=== PATIENT | male | born 1930 | race Caucasian/White ===

== ENCOUNTER 2016-04-26 20:26 | Inpatient (IN) | payer OTHER ==
[~2016-04-26] VITALS: Ht 182.9 cm; Wt 77.1 kg
[2016-04-26 20:48] LABS: BASOPHILS % (AUTO) 0.3 % (0.0-2.0); DIFF TOTAL % 100 %; EOSINOPHILS # (AUTO) 0.5 /CMM (0.0-0.7); EOSINOPHILS % (AUTO) 7.2 % (0.0-6.0); HEMATOCRIT 42 % (39-51); HEMOGLOBIN 14.2 g/dL (13.5-17.5); LYMPHOCYTES # (AUTO) 1.2 /CMM (0.8-4.8); LYMPHOCYTES % (AUTO) 17.8 % (20.0-44.0); MEAN CORPUSCULAR HEMOGLOBIN 31 PG (26.0-33.0); MEAN CORPUSCULAR HGB CONC 34 g/dl (31.0-36.0); MEAN CORPUSCULAR VOLUME 90 fL (80-96); MONOCYTES # (AUTO) 0.7 /CMM (0.1-1.30); MONOCYTES % (AUTO) 9.9 % (2.0-12.0); NEUTROPHILS # (AUTO) 4.5 /CMM (1.8-8.9); NEUTROPHILS % (AUTO) 64.8 % (43.0-81.0); PLATELET COUNT (AUTO) 271 /CMM (150-450); RED BLOOD CELL COUNT(AUTO) 4.67 MIL/uL (4.5-6.0); WHITE BLOOD COUNT (AUTO) 6.9 K/uL (4.3-11.0)
[2016-04-26 20:56] LABS: ANION GAP 9 (5-14); CALCIUM, SERUM 9.1 mg/dL (8.5-10.1); CARBON DIOXIDE 30 mmol/L (21-32); CHLORIDE 108 mmol/L (98-107); CREATININE 0.8 mg/dL (0.6-1.3); GLUCOSE 130 mg/dL (74-106); POTASSIUM 3.4 mmol/L (3.5-5.1); SODIUM SERUM 144 mmol/L (136-145); UREA NITROGEN, BLOOD 12 mg/dL (7-18)
[2016-04-26] MEDS ORDERED: MIRT15TA7 PO (21:00)
[2016-04-26] MEDS ORDERED: ZIPR20CA2 IV (21:00)
[2016-04-26] MEDS ORDERED: POTA20TA83 IV (21:00)
[2016-04-26] MEDS ORDERED: ACET-73 PO (21:00)
[2016-04-26] MEDS ORDERED: MIDO5TAB PO (21:00)
[2016-04-26] MEDS ORDERED: LATA2.5D7 EACHEYE (21:00)
[2016-04-26] MEDS ORDERED: ONDA4TAB5 IVP (21:00)
[2016-04-26] MEDS ORDERED: FINA5TAB11 PO (21:00)
[2016-04-26] MEDS ORDERED: MEMA10TA PO (21:00)
[2016-04-26] MEDS ORDERED: QUET25TA PO (21:00)
[2016-04-26] MEDS ORDERED: QUET100T PO (21:00)
[2016-04-26] MEDS ORDERED: LORA1TAB82 IVP (21:00)
[2016-04-26 21:01] LABS: ALANINE AMINOTRANSFERASE 29 U/L (12-78); ALBUMIN 3.2 g/dL (3.4-5.0); ASPARTATE AMINOTRANSFERASE 29 U/L (15-37); BILIRUBIN,DIRECT 0.1 mg/dL (0.0-0.2); BILIRUBIN,TOTAL 0.4 mg/dL (0.2-1.0); INDIRECT BILIRUBIN 0.3 mg/dL (0.0-1.1); TOTAL PROTEIN, SERUM 6.8 g/dL (6.4-8.2)
[2016-04-26 21:02] LABS: ACETAMINOPHEN < 2 ug/ml (10-30); SALICYLATE 1.1 mg/dL (2.8-20.0)
[2016-04-26] MEDS ORDERED: WATER FOR INJECTION,STERILE 10 ML ONE (21:43)
[2016-04-26] MEDS ORDERED: OLANZAPINE 10 MG VIAL IM ONE ×2 (21:43→22:00)
[2016-04-26] MEDS ORDERED: LORAZEPAM 0.5 MG TABLET ONE (23:09)
[2016-04-26] MEDS ORDERED: TEMAZEPAM 7.5 MG CAPSULE ONE (23:09)
[2016-04-26] MEDS: TEMAZEPAM 7.5 MG CAPSULE PO PRN (23:14)
[2016-04-26] MEDS: LORAZEPAM 0.5 MG TABLET PO PRN (23:14)
[2016-04-26] MEDS ORDERED: ACETAMINOPHEN 325 MG TABLET PO PRN (23:30)
[2016-04-26] MEDS ORDERED: POTASSIUM CHLORIDE 20 MEQ TAB.PRT.SR PO ONE (23:30)
[2016-04-26] MEDS ORDERED: MAGNESIUM HYDROXIDE 30 ML UDC PO PRN (23:30)
[2016-04-26] MEDS ORDERED: MAG HYDROX/AL HYDROX/SIMETH 30 ML UDC PO PRN (23:30)
[2016-04-27 00:29] LABS: CHOLESTEROL 215 mg/dL (<200); HDL CHOLESTEROL 36 mg/dL (40-60); LDL 150 mg/dL (0-99); TRIGLYCERIDES 105 mg/dL (30-150)
[2016-04-27] MEDS ORDERED: MEMA10TA PO (00:30)
[2016-04-27] MEDS ORDERED: LATA2.5D2 EACHEYE (00:30)
[2016-04-27] MEDS ORDERED: RISP0.253 PO (00:30)
[2016-04-27] MEDS ORDERED: MIDO5TAB PO (00:30)
[2016-04-27] MEDS ORDERED: MIRT15TA3 PO (00:30)
[2016-04-27] MEDS ORDERED: QUET25TA PO (00:30)
[2016-04-27] MEDS ORDERED: FINA5TAB4 PO (00:30)
[2016-04-27] MEDS ORDERED: POTASSIUM CHLORIDE 20 MEQ TAB.PRT.SR PO ONE (00:45)
[2016-04-27] MEDS: MISCELLANEOUS MED 1 EA EA PO SCH ×2 (01:00→05:00)
[2016-04-27] MEDS ORDERED: ACETAMINOPHEN 325 MG TABLET PO PRN (07:30)
[2016-04-27] MEDS ORDERED: ONDANSETRON HCL/PF 4 MG/2 ML VIAL IVP PRN (07:30)
[2016-04-27 08:00] VITALS: BP 108/59
[2016-04-27] MEDS: MIDODRINE HCL (5MG) 5 MG TABLET PO SCH ×3 (08:59→16:14)
[2016-04-27] MEDS: FINASTERIDE (5 MG) 5 MG TABLET PO SCH (09:00)
[2016-04-27] MEDS: MEMANTINE HCL 5 MG TABLET PO SCH ×2 (11:40→16:13)
[2016-04-27] MEDS ORDERED: QUETIAPINE FUMARATE 25 MG TABLET PO PRN (14:30)
[2016-04-27] MEDS: LORAZEPAM 0.5 MG TABLET PO PRN ×2 (15:00→21:56)
[2016-04-27 16:00] VITALS: BP 138/73
[2016-04-27 16:17] LABS: BASOPHILS % (AUTO) 0.3 % (0.0-2.0); DIFF TOTAL % 100 %; EOSINOPHILS # (AUTO) 0.5 /CMM (0.0-0.7); EOSINOPHILS % (AUTO) 4.7 % (0.0-6.0); HEMATOCRIT 45 % (39-51); HEMOGLOBIN 14.6 g/dL (13.5-17.5); LYMPHOCYTES # (AUTO) 1.4 /CMM (0.8-4.8); LYMPHOCYTES % (AUTO) 13.9 % (20.0-44.0); MEAN CORPUSCULAR HEMOGLOBIN 30 PG (26.0-33.0); MEAN CORPUSCULAR HGB CONC 33 g/dl (31.0-36.0); MEAN CORPUSCULAR VOLUME 91 fL (80-96); MONOCYTES # (AUTO) 0.8 /CMM (0.1-1.30); MONOCYTES % (AUTO) 7.7 % (2.0-12.0); NEUTROPHILS # (AUTO) 7.5 /CMM (1.8-8.9); NEUTROPHILS % (AUTO) 73.4 % (43.0-81.0); PLATELET COUNT (AUTO) 288 /CMM (150-450); RED BLOOD CELL COUNT(AUTO) 4.91 MIL/uL (4.5-6.0); WHITE BLOOD COUNT (AUTO) 10.2 K/uL (4.3-11.0)
[2016-04-27 16:45] LABS: ALBUMIN 3.5 g/dL (3.4-5.0); BILIRUBIN,TOTAL 0.5 mg/dL (0.2-1.0); CALCIUM, SERUM 9.5 mg/dL (8.5-10.1); POTASSIUM 4.6 mmol/L (3.5-5.1); TOTAL PROTEIN, SERUM 7.3 g/dL (6.4-8.2)
[2016-04-27] MEDS: LATANOPROST EYE DROP 0.005% 2.5 ML BOTTLE EACHEYE SCH (19:00)
[2016-04-27 20:14] VITALS: BP 143/66
[2016-04-27] MEDS: TEMAZEPAM 7.5 MG CAPSULE PO PRN (21:56)
[2016-04-27] MEDS ORDERED: MIRTAZAPINE 15 MG TABLET PO SCH (22:00)
[2016-04-28 08:00] VITALS: BP 103/90
[2016-04-28 08:15] VITALS: BP 103/90
[2016-04-28] MEDS: FINASTERIDE (5 MG) 5 MG TABLET PO SCH (08:48)
[2016-04-28] MEDS: MEMANTINE HCL 5 MG TABLET PO SCH ×2 (08:48→17:37)
[2016-04-28] MEDS: MIDODRINE HCL (5MG) 5 MG TABLET PO SCH ×3 (08:48→17:00)
[2016-04-28 16:00] VITALS: BP 141/73
[2016-04-28] MEDS: LATANOPROST EYE DROP 0.005% 2.5 ML BOTTLE EACHEYE SCH (17:36)
[2016-04-28] MEDS: QUETIAPINE FUMARATE 25 MG TABLET PO SCH (18:00)
[2016-04-28 19:59] VITALS: BP 119/60
[2016-04-28] MEDS: MIRTAZAPINE 15 MG TABLET PO SCH (21:40)
[2016-04-28] MEDS: TEMAZEPAM 7.5 MG CAPSULE PO PRN (21:43)
[2016-04-29] MEDS: LORAZEPAM 0.5 MG TABLET PO PRN (00:38)
[2016-04-29 08:00] VITALS: BP 153/63
[2016-04-29] MEDS: FINASTERIDE (5 MG) 5 MG TABLET PO SCH (09:25)
[2016-04-29] MEDS: MIDODRINE HCL (5MG) 5 MG TABLET PO SCH ×3 (09:25→17:53)
[2016-04-29] MEDS: MEMANTINE HCL 5 MG TABLET PO SCH (09:25)
[2016-04-29] MEDS ORDERED: Z GUARD REMEDY 2 OZ OINT TP PRN (11:30)
[2016-04-29] MEDS: BOOST PLUS FOOD-VANILLA 237 ML BOX PO SCH ×2 (14:51→17:00)
[2016-04-29 16:00] VITALS: BP 153/84
[2016-04-29] MEDS: QUETIAPINE FUMARATE 25 MG TABLET PO SCH (17:52)
[2016-04-29] MEDS: LATANOPROST EYE DROP 0.005% 2.5 ML BOTTLE EACHEYE SCH (18:15)
[2016-04-29 21:15] VITALS: BP 129/74
[2016-04-29] MEDS: MIRTAZAPINE 15 MG TABLET PO SCH (21:36)
[2016-04-29] MEDS: TEMAZEPAM 7.5 MG CAPSULE PO PRN (22:07)
[2016-04-30 08:00] VITALS: BP 147/52
[2016-04-30] MEDS: MIDODRINE HCL (5MG) 5 MG TABLET PO SCH ×3 (10:04→18:09)
[2016-04-30] MEDS: FINASTERIDE (5 MG) 5 MG TABLET PO SCH (10:04)
[2016-04-30] MEDS: BOOST PLUS FOOD-VANILLA 237 ML BOX PO SCH ×2 (10:05→18:06)
[2016-04-30 16:00] VITALS: BP 114/57
[2016-04-30] MEDS: QUETIAPINE FUMARATE 25 MG TABLET PO SCH (18:07)
[2016-04-30] MEDS: LATANOPROST EYE DROP 0.005% 2.5 ML BOTTLE EACHEYE SCH (18:42)
[2016-04-30 19:59] VITALS: BP 99/54
[2016-04-30] MEDS: MIRTAZAPINE 15 MG TABLET PO SCH (21:57)
[2016-04-30] MEDS: TEMAZEPAM 7.5 MG CAPSULE PO PRN (21:58)
[2016-05-01] MEDS: BOOST PLUS FOOD-VANILLA 237 ML BOX PO SCH ×2 (08:43→16:43)
[2016-05-01] MEDS: FINASTERIDE (5 MG) 5 MG TABLET PO SCH (08:43)
[2016-05-01] MEDS: MIDODRINE HCL (5MG) 5 MG TABLET PO SCH ×3 (08:44→16:43)
[2016-05-01 16:00] VITALS: BP 132/66
[2016-05-01] MEDS: LATANOPROST EYE DROP 0.005% 2.5 ML BOTTLE EACHEYE SCH (18:11)
[2016-05-01] MEDS: QUETIAPINE FUMARATE 25 MG TABLET PO SCH (18:13)
== END 2016-05-01 19:45 | DRG 885 ==
LOC: ER 20:28 → GPS 23:00
PROVIDERS: ADMIT Psychiatry & Neurology Psychosomatic Medicine; ATTEND Internal Medicine
DX: F29 Unspecified psychosis not due to a substance or known physiological condition (principal); F02.80 Dementia in other diseases classified elsewhere, unspecified severity, without behavioral disturbance, psychotic disturbance, mood disturbance, and anxiety; G93.40 Encephalopathy, unspecified; E78.5 Hyperlipidemia, unspecified; E87.6 Hypokalemia; G30.9 Alzheimer's disease, unspecified; I10 Essential (primary) hypertension; N40.0 Benign prostatic hyperplasia without lower urinary tract symptoms; H40.9 Unspecified glaucoma
CPT/HCPCS: 36415; 70450-TC; 80048-TC; 80053-TC; 80061-TC; 80076-TC; 84443-TC; 85025-TC; 87081-TC; 92526; 92611-TC; 97001-TC; 97116-TC; 97530-TC; A4606; G0480; G6039-TC; J3490; Z7610